=== PATIENT | female | born 1985 | race Caucasian/White ===

== ENCOUNTER 2019-04-21 16:14 | Emergency (ER) | payer OTHER ==
[~2019-04-21] VITALS: Ht 175.2 cm; Wt 140.6 kg
[2019-04-21] MEDS ORDERED: KEFLEX500 M1 PO (16:45)
== END 2019-04-21 17:06 | disposition home or self-care (01) ==
LOC: ED 16:14
DX: S61.216A Laceration without foreign body of right little finger without damage to nail, initial encounter (principal); W25.XXXA Contact with sharp glass, initial encounter; Y93.89 Activity, other specified; Y92.89 Other specified places as the place of occurrence of the external cause; Y99.8 Other external cause status